=== PATIENT | male | born 1990 | race Caucasian/White ===

== ENCOUNTER 2016-11-22 18:59 | Emergency (ER) | payer OTHER ==
[2016-11-22 19:08] VITALS: BP 114/72
[2016-11-22] MEDS ORDERED: Alum Hydrox/Mag Hydrox/Simeth 30 ML, Lidocaine 2% 15 ML PO ONE ×2 (19:10)
--- NOTE | 2016-11-22 19:17 | EDM.PDOC ---
ED HISTORY OF PRESENT ILLNESS - General Chief Complaint: Chest Pain Stated Complaint: CHEST PAIN Time Seen by Provider: 11/22/16 19:01 Source of Information: Reports: Patient History Limitations: Reports: No limitations - History of Present Illness INITIAL COMMENTS - FREE TEXT/NARRATIVE: This is a 26 y/o male. On set of center of his chest pain. Feels like pressure. No radiation to the neck, arms or left chest area. No shortness of breath or sweating. He took some advil but it didn't help. No hx of CAD for him but a family hx though he can't tell me the ages of his parents when they had heart dz. He does not appear in distress presently. 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 No recent illnesses colds, coughs, No nausea or vomiting with the pain. No hx of gallbladder problems or hx of ulcers or GERD. - Related Data Allergies/ADRs: Allergies Allergy/AdvReac Type Severity Reaction Status Date / Time oxycodone Allergy Shortness Verified 11/22/16 19:02 of Breath Home Meds: Home Meds Naproxen [Naprosyn] 500 mg PO Q12HR #14 tablet 05/22/16 [Rx] Pantoprazole Sodium [Protonix] 40 mg PO QAM #30 tablet. 11/22/16 [Rx] Past Medical History - Past Health History Medical/Surgical History: Denies Medical/Surgical History Musculoskeletal History: Reports: Back pain, chronic Social & Family History - Tobacco Use Smoking Status *Q: Never Smoker Years of Tobacco use: 5 Used Tobacco, but Quit: Yes Month Tobacco Last Used: 8 months Second Hand Smoke Exposure: No - Caffeine Use Caffeine Use: Reports: Coffee - Alcohol Use Days Per Week of Alcohol Use: 0 - Recreational Drug Use Recreational Drug Use: No Drug Use in Last 12 Months: Yes Recreational Drug Type: Reports: Marijuana/Hashish Recreational Drug Use Frequency: Weekly Recreational Drug Last Use: T-1 ED ROS GENERAL - Review of Systems Review Of Systems: See Below Constitutional: Denies: fever, chills HEENT: Reports: No symptoms Respiratory: Denies: Shortness of Breath, Cough Cardiovascular: Reports: Chest pain. Denies: Edema Endocrine: Reports: no symptoms GI/Abdominal: Denies: Abdominal pain, Nausea, Vomiting : Reports: no symptoms Musculoskeletal: Reports: no symptoms Skin: Reports: no symptoms Neurological: Reports: No Symptoms Psychiatric: Reports: No symptoms ED EXAM, GENERAL - Physical Exam Exam: See Below Exam Limited By: No limitations General Appearance: alert, no apparent distress, other (Morbidly obese) Ears: normal external exam Nose: normal inspection Throat/Mouth: Normal inspection, Normal lips, Normal voice Head: normocephalic Neck: supple Respiratory/Chest: no respiratory distress, lungs clear, normal breath sounds Cardiovascular: regular rate, rhythm, no edema, no murmur GI/Abdominal: normal bowel sounds, soft, other (No tenderness in the RUQ on palpation, Epigastric palpation increases his discomfort and is tender. No lower abdomen pain with palpation.). No: distended, guarding, rigid, rebound Back Exam: full range of motion Extremities: normal inspection, normal range of motion Neurological: alert, oriented Psychiatric: normal affect, normal mood Skin Exam: Warm, Dry EKG INTERPRETATION EKG Date: 11/22/16 Time: 19:00 Rhythm: NSR EKG Interpretation Comments: EKG shows a normal sinus rhythm there appears to be early repolarization noted, however I do not see any acute ST or T wave changes. Course - Vital Signs Last Recorded V/S: Last Vital Signs Temp 99.6 F 11/22/16 19:02 Pulse 94 11/22/16 19:02 Resp 17 11/22/16 19:02 BP 114/72 11/22/16 19:02 Pulse Ox 97 11/22/16 19:02 - Orders/Labs/Meds Orders: Active Orders 24 hr Category Date Time Status EKG 12 Lead [EKG Documentation Completion] [RC] STAT Care 11/22/16 19:53 Active Abdomen Ltd [US] Stat Exams 11/22/16 19:46 Taken Labs: Laboratory Tests 11/22/16 11/22/16 Range/Units 19:10 19:10 WBC 11.98 H (4.23-9.07) K/mm3 RBC 4.87 (4.63-6.08) M/mm3 Hgb 14.6 (13.7-17.5) gm/L Hct 41.9 (40.1-51.0) % MCV 86.0 (79.0-92.2) fl MCH 30.0 (25.7-32.2) pg MCHC 34.8 (32.2-35.5) g/dl RDW Std Deviation 39.8 (35.1-43.9) fL Plt Count 226 (163-337) K/mm3 MPV 10.3 (9.4-12.3) fl Neut % (Auto) 60.2 (34.0-67.9) % Lymph % (Auto) 29.0 (21.8-53.1) % [place] % (Auto) 7.8 (5.3-12.2) % Eos % (Auto) 2.0 (0.8-7.0) Baso % (Auto) 0.8 (0.1-1.2) % Neut # (Auto) 7.21 H (1.78-5.38) K/mm3 Lymph # (Auto) 3.48 (1.32-3.57) K/mm3 [place] # (Auto) 0.94 H (0.30-0.82) K/mm3 Eos # (Auto) 0.24 (0.04-0.54) K/mm3 Baso # (Auto) 0.09 H (0.01-0.08) K/mm3 Sodium 140 (136-145) mEq/L Potassium 3.5 (3.5-5.1) mEq/L Chloride 106 (98-107) mEq/L Carbon Dioxide 26 (21-32) mEq/L Anion Gap 11.5 (5-15) BUN 16 (7-18) mg/dL Creatinine 0.8 (0.7-1.3) mg/dL Est Cr Clr Drug Dosing 155.36 mL/min Estimated GFR (MDRD) > 60 (>60) mL/min BUN/Creatinine Ratio 20.0 H (14-18) Glucose 129 H (74-106) mg/dL Calcium 8.1 L (8.5-10.1) mg/dL Total Bilirubin 0.4 (0.2-1.0) mg/dL AST TNP ALT TNP Alkaline Phosphatase 91 (46-116) U/L Troponin I < 0.017 (0.00-0.056) ng/mL Total Protein 7.6 (6.4-8.2) g/dl Albumin 3.9 (3.4-5.0) g/dl Globulin 3.7 gm/dL Albumin/Globulin Ratio 1.1 (1-2) Lipase 103 (73-393) U/L Meds: Medications Discontinued Medications Generic Name Dose Route Start Last Admin Trade Name Dania PRN Reason Stop Dose Admin Al Hydroxide/Mg Hydroxide 30 0 ml 11/22/16 19:10 11/22/16 19:18 ml/ Lidocaine HCl 15 ml PO 11/22/16 19:11 45 ml ONETIME ONE Administration Hydromorphone HCl 0.5 mg 11/22/16 20:26 11/22/16 20:34 Dilaudid IVPUSH 11/22/16 20:27 0.5 mg ONETIME ONE Administration - Radiology Interpretation Free Text/Narrative:: The ultrasound did not show any gallstones or any acute gallbladder problems, the pancreas was not visualized very well. I spoke to the patient regarding the ultrasound I still believe it is probably his gallbladder causing his pain and he needs to get a HIDA scan. I also explained to him about his cholesterol and triglycerides. I will refer him to Dr. Dewey for evaluation of his gallbladder with a HIDA scan and also to look into his cholesterol and triglycerides. Should be noted on his CMP they were not able to test his liver enzymes due to the lipemic bloos. - Re-Assessments/Exams Free Text/Narrative Re-Assessment/Exam: 11/22/16 19:57 The GI cocktail did not seem to help his epigastric pain. Reexamination he is very tender the epigastric but now he appears to be very tender in the right upper quadrant on palpation with a positive Perdomo's so we will go ahead and get an ultrasound of his gallbladder. He last ate at 12 noon and has been drinking water since that time. Departure - Departure Time of Disposition: 23:07 Disposition: Home, Self-Care 01 Condition: fair Clinical Impression: Right upper quadrant pain, Epigastric pain Prescriptions: Pantoprazole Sodium [Protonix] 40 mg PO QAM #30 tablet. Forms: ED Department Discharge Additional Instructions: Followup with Dr. Calderón here at [facility] building is on the other side of the hospital from the ER, his phone number for registration would be [phone], when you see him let him know that you have gallbladder problems and need a HIDA scan, be certain in your diet not to eat anything it's fried greasy or oily because this will make your gallbladder hurt, also let him know that your cholesterol and triglycerides are elevated and he needs to do some blood work to check them, return to the ER if your symptoms worsen - My Orders Last 24 Hours: My Active Orders 11/22/16 19:46 Abdomen Ltd [US] Stat 11/22/16 19:53 EKG 12 Lead [EKG Documentation Completion] [RC] STAT - Assessment/Plan Last 24 Hours: My Active Orders 11/22/16 19:46 Abdomen Ltd [US] Stat 11/22/16 19:53 EKG 12 Lead [EKG Documentation Completion] [RC] STAT
[2016-11-22] MEDS ORDERED: HYDROmorphone 1 MG/ML Syringe IVPUSH ONE (20:26)
--- NOTE | 2016-11-24 10:34 | US ---
Limited abdominal ultrasound: Multiple real-time images of the upper right abdomen were obtained. Comparison: No previous abdominal imaging. Technologist's note: Limited portions of study due to patient body habitus. Livers appears echogenic likely representing fatty infiltration. No focal abnormality is appreciated. Right kidney shows no hydronephrosis or mass and has a length of 12.8 cm. Gallbladder shows no gallstones. No biliary duct dilatation is seen. Pancreas obscured from bowel gas. Impression: 1. Obscured pancreas from bowel gas. 2. Probable fatty infiltration. 3. No additional abnormality is appreciated on right upper quadrant abdominal ultrasound. Diagnostic code #2 I agree with preliminary report issued by Sr.Pago (preliminary report dictated on 11/22/16, 10:21 PM Central Time)
== END 2016-11-22 23:40 | disposition home or self-care (01) ==
LOC: JD.ED 18:59
DX: R10.11 Right upper quadrant pain (principal); R10.13 Epigastric pain; Z88.6 Allergy status to analgesic agent
CPT/HCPCS: 36415; 76705; 80053; 83690; 84484; 85025; 93005; 96374; 99285; A9270; J1170; 99284

== ENCOUNTER 2017-03-31 07:47 | Emergency (ER) | payer BC, OTHER ==
[2017-03-31 08:05] VITALS: BP 120/89
--- NOTE | 2017-03-31 08:20 | EDM.PDOC ---
ED HPI GENERAL MEDICAL PROBLEM - General Chief Complaint: Back Pain or Injury Stated Complaint: BACK PAIN Time Seen by Provider: 03/31/17 08:08 Source of Information: Reports: Patient History Limitations: Reports: No Limitations - History of Present Illness INITIAL COMMENTS - FREE TEXT/NARRATIVE: The patient presents with low back pain. [place] the [place] about 2 weeks ago and he was loading a boat and he slipped on the dock and fell. He hurt his right low back. He went to the walk in clinic at [place] and they did x-rays and there was no fracture. He was scheduled to see someone on the . He is still having pain. He has no numbness or weakness. He has no bowel or bladder problems. Onset: Sudden Duration: Week(s): (2) Location: Reports: Back Quality: Reports: Sharp Severity: Moderate Improves with: Reports: None Worsens with: Reports: Movement Context: Reports: Activity (He was loading a boat and he slipped and fell) Associated Symptoms: Reports: No Other Symptoms Right Lower Back Pain Score (Numeric/FACES): 8 - Related Data Allergies Allergy/AdvReac Type Severity Reaction Status Date / Time oxycodone Allergy Shortness Verified 03/31/17 08:05 of Breath Home Meds: Home Meds Cyclobenzaprine [Flexeril] 10 mg PO TID PRN #20 tablet 03/31/17 [Rx] Hydrocodone/Acetaminophen [Hydrocodon-Acetaminophen 5-325] 1 - 2 each PO Q6HR PRN #20 tablet 03/31/17 [Rx] Past Medical History - Past Health History Medical/Surgical History: Denies Medical/Surgical History Cardiovascular History: Reports: Other (See Below) Other Cardiovascular History: chest pain of unknown origin Musculoskeletal History: Reports: Back Pain, Chronic - Infectious Disease History Infectious Disease History: Reports: Chicken Pox Social & Family History - Family History Cardiac: Reports: IN - Tobacco Use Smoking Status *Q: Never Smoker Years of Tobacco use: 5 Used Tobacco, but Quit: Yes Month Tobacco Last Used: 8 months Second Hand Smoke Exposure: No - Caffeine Use Caffeine Use: Reports: Coffee - Alcohol Use Days Per Week of Alcohol Use: 0 - Recreational Drug Use Recreational Drug Use: Yes Drug Use in Last 12 Months: Yes Recreational Drug Type: Reports: Marijuana/Hashish Recreational Drug Use Frequency: Weekly Recreational Drug Last Use: T-1 ED ROS GENERAL - Review of Systems Review Of Systems: See Below Constitutional: Reports: No Symptoms HEENT: Reports: No Symptoms Respiratory: Reports: No Symptoms Cardiovascular: Reports: No Symptoms Endocrine: Reports: No Symptoms GI/Abdominal: Reports: No Symptoms : Reports: No Symptoms Musculoskeletal: Reports: Back Pain (Right lower) ED EXAM,LOWER BACK PAIN/INJURY - Physical Exam Exam: See Below Exam Limited By: No Limitations General Appearance: Alert, No Apparent Distress Ears: Normal External Exam Nose: Normal Inspection Head: Atraumatic, Normocephalic Neck: Normal Inspection Respiratory/Chest: No Respiratory Distress, Lungs Clear, Normal Breath Sounds Cardiovascular: Regular Rate, Rhythm, No Edema, No Murmur GI/Abdominal: Soft, Non-Tender, No Organomegaly, No Mass Back Exam: Other (Pain upon palpation to the right lower back) Extremities: Normal Inspection Neurological: Alert, No Motor/Sensory Deficits, Oriented x 3 Course - Vital Signs Last Recorded V/S: Last Vital Signs Temp 96.7 F 03/31/17 08:02 Pulse 80 03/31/17 08:02 Resp 16 03/31/17 08:02 BP 120/89 03/31/17 08:02 Pulse Ox 98 03/31/17 08:02 - Re-Assessments/Exams Free Text/Narrative Re-Assessment/Exam: 03/31/17 08:31 I will get him on some flexeril and hydrocodone for pain. He wants an MRI. That is not something I can order out of the ER. I can refer him to Dr Dewey and they can talk about it. Departure - Departure Time of Disposition: 08:35 Disposition: Home, Self-Care 01 Condition: Good Clinical Impression: Low back pain Qualifiers: Chronicity: acute Back pain laterality: right Sciatica presence: without sciatica Qualified Code(s): M54.5 - Low back pain - Discharge Information Prescriptions: Hydrocodone/Acetaminophen [Hydrocodon-Acetaminophen 5-325] 1 - 2 each PO Q6HR PRN #20 tablet PRN Reason: Pain Cyclobenzaprine [Flexeril] 10 mg PO TID PRN #20 tablet PRN Reason: Pain Referrals: Carolyn Calderón [Physician] - 1 Day Forms: ED Department Discharge Additional Instructions: Take flexeril 2 times per day as needed for low back pain. Take hydrocodone every 6 hours as needed. Follow up with Dr Calderón today at 10:30. Please check in early at 10:15. Please return if you are worse.
== END 2017-03-31 08:48 | disposition home or self-care (01) ==
LOC: JD.ED 07:47
DX: M54.5 Low back pain (principal); Z87.891 Personal history of nicotine dependence; Z88.6 Allergy status to analgesic agent
CPT/HCPCS: 99283